=== PATIENT | male | born 1960 | race Caucasian/White ===

== ENCOUNTER → 2017-03-24 | Outpatient (CLI) | payer MEDICAID ==
--- NOTE | 2017-03-24 10:59 | RADIOLOGY REPORT (SQ) ---
EXAM DESCRIPTION: KUB COMPLETED DATE/TIME: 03/24/2017 10:43 am REASON FOR STUDY: CALCULUS OF KIDNEY N20.0 CALCULUS OF KIDNEY COMPARISON: CT dated 03/20/2016. NUMBER OF VIEWS: One view. TECHNIQUE: AP supine digital radiograph of the abdomen. LIMITATIONS: Bowel contents limit visualization of the kidneys. FINDINGS: CALCIFICATIONS: RIGHT KIDNEY: None. RIGHT URETER: No calcifications in the expected location of the ureter. LEFT KIDNEY: None. LEFT URETER: No calcifications in the expected location of the ureter. BLADDER: No suspicious calcifications in the pelvis. BOWEL GAS PATTERN AND SOFT TISSUES: Normal bowel gas pattern. No masses or organomegaly. BONES: No acute fracture. No worrisome bone lesions. OTHER: None. IMPRESSION: NO CALCIFICATIONS IDENTIFIED IN THE EXPECTED LOCATION OF THE URINARY SYSTEM. THERE IS L IMITED VISUALIZATION DUE TO OVERLYING BOWEL CONTENTS. TECHNICAL DOCUMENTATION: JOB ID: [id number] [employer]- All Rights Reserved
== END ==
LOC: OD 10:15
PROVIDERS: ATTEND Urology
DX: N20.0 Calculus of kidney (principal)
CPT/HCPCS: 74000

== ENCOUNTER 2017-07-09 10:57 | Emergency (ER) | payer MEDICAID ==
[2017-07-09 11:03] VITALS: BP 151/72
[2017-07-09] MEDS ORDERED: CLINDAMYCIN HCL 150 MG CAPSULE PO ONE (11:22)
[2017-07-09] MEDS ORDERED: OXYCODONE-ACETAMINOPHEN 5-325 MG TABLET PO ONE (11:23)
--- NOTE | 2017-07-09 11:23 | ER Document Report ---
ED Skin Rash/Insect Bite/Abscs - General Chief Complaint: Skin Problem Stated Complaint: SKIN IRRITATION Time Seen by Provider: 07/09/17 11:06 Notes: Patient is a 56-year-old male who presents emergency department complaining of a bug bite on his back that has been there for about 1 week. States it is painful and red and tender. States he is trying to drain it at home without any LOC. Denies any fevers or chills. Denies any previous history of MRSA or VRE TRAVEL OUTSIDE OF THE [place] IN LAST 30 DAYS: No - Related Data Allergies/Adverse Reactions: No Known Allergies Allergy (Verified 01/04/16 19:11) Past Medical History - Social History Smoking Status: Current Every Day Smoker Family History: DM - Past Medical History Cardiac Medical History: Denies: Hx Coronary Artery Disease, Hx Heart Attack, Hx Hypertension Pulmonary Medical History: Denies: Hx Asthma, Hx Bronchitis, Hx COPD, Hx Pneumonia Neurological Medical History: Denies: Hx Cerebrovascular Accident, Hx Seizures Musculoskeltal Medical History: Reports Hx Arthritis - Immunizations Hx Diphtheria, Pertussis, Tetanus Vaccination: No Review of Systems - Review of Systems Constitutional: No symptoms reported Cardiovascular: No symptoms reported Respiratory: No symptoms reported Skin: See HPI -: Yes All other systems reviewed and negative Physical Exam - Vital signs Vitals: Temp Pulse Resp BP Pulse Ox 98.1 F 85 16 151/72 H 96 07/09/17 10:59 07/09/17 10:59 07/09/17 10:59 07/09/17 10:59 07/09/17 10:59 - Notes Notes: PHYSICAL EXAM GENERAL: Alert, interacts well. LUNGS: Clear to auscultation bilaterally, no wheezes, rales, or rhonchi. No respiratory distress. HEART: Regular rate and rhythm. No murmurs, gallops, or rubs. ABDOMEN: Soft, nondistended, nontender. No guarding, rebound, or rigidity.. Bowel sounds present in all 4 quadrants. EXTREMITIES: Moves all 4 extremities spontaneously. No edema, radial and dorsalis pedis pulses 2/4 bilaterally. No cyanosis. NEUROLOGICAL: Alert and oriented x4. Normal speech. PSYCH: Normal affect, normal mood. SKIN: Warm, dry, normal turgor. 5 cm in diameter abscess on patient's back with central fluctuance and purulent material without active drainage and surrounding induration. Course - Re-evaluation Re-evalutation: 07/09/17 13:26 Patient is a 56-year-old male who is hemodynamically stable, no acute distress and afebrile. Presentation is consistent with abscess. I&D performed at the bedside for approximately 5 cc of present material packing placed in the wound. Patient to be discharged on clindamycin and to follow-up in the emergency department on Friday for wound check. Discussed strict return precautions otherwise patient is stable for discharge home. - Vital Signs Vital signs: Temp Pulse Resp BP Pulse Ox 98.1 F 85 16 151/72 H 96 07/09/17 10:59 07/09/17 10:59 07/09/17 10:59 07/09/17 10:59 07/09/17 10:59 Procedures - Incision and Drainage Mid- Back Type: Simple Anesthetic type: 1% Lidocaine mL's of anesthetic: 8 Blade size: 11 I&D procedure: Betadine prep applied Incision Method: Incision made by scalpel Amount/type of drainage: 5cc purulent material Discharge - Discharge Clinical Impression: Abscess Condition: Good Disposition: HOME, SELF-CARE Additional Instructions: Return for wound check in 3 days ABSCESS: You have an abscess (boil). This a pus-forming infection, usually due to staph. Some boils may be left to drain on their own, but most require lancing. From the time the tender lump first appears, it may be three or four days before the abscess is ready to erik. Local heat and rest help at this stage of treatment. An antibiotic may prevent spread of the infection. Once the abscess is opened, packing may be placed into it. This is done so pus is not sealed inside by premature closure of the cavity. The packing will be removed at your follow-up visit or you may be advised to remove it yourself at home. Sometimes this packing must be replaced a few times during healing. The wound will heal with surprisingly little scar. Depending on the size and location of an abscess, healing can take one to four weeks. You may shower and wash the area around the incision site two or three times a day. Antibiotics may be prescribed, but are usually not necessary after an abscess has been drained. If you develop fever, chills, worsening pain, or increasing swelling in the area, call the doctor or return immediately. POST INCISION AND DRAINAGE: You have had an incision made to allow drainage of an abscess. The incision must remain open so that pus and debris can drain from the wound. If the abscess cavity is large, packing is placed. This keeps the tissues from collapsing and trapping pus inside, while the body shrinks the cavity. The packing may need to be replaced every day or two. The physician will instruct you on the packing. Keep a bulky dressing over the area. Replace it if it becomes saturated with blood or pus. Do not disturb the packing (if present). You may shower and cleanse the area with gentle soap and warm water two or three times a day. Local warmth may be soothing, and may promote faster healing. Return if you develop high fever or chills, or if you note spreading redness, increasing swelling, or increasing tenderness. MRSA CELLULITIS: You have an infection of your skin and underlying soft tissues called cellulitis. This is due to bacteria, which can enter through any break in the skin, or even through an irritated hair follicle. Untreated, cellulitis will usually worsen and may form an abscess which requires draining. Although many bacterial organisms can cause cellulitis and abscess formations, the most likely bacteria is Methicillin-Resistant Staph Aureus, or MRSA for short. Antibiotics are required. Usually, warm packs or warm soaks, and elevation of the infected area are recommended. You should start getting better within 24 to 36 hours. Most infections respond quickly to the right medication. Follow-up care is important, however, to check for abscess (boil) formation, unsuspected foreign body, or resistant infection. If you develop fever, chills, or if the area of infection is becoming rapidly more swollen or painful, call the doctor at once. ORAL NARCOTIC MEDICATION: You have been given a prescription for pain control. This medication is a narcotic. It's best taken with food, as nausea can result if taken on an empty stomach. Don't operate machinery or drive within six hours of taking this medication. Do not combine this medicine with alcohol, or with any medication which can cause sedation (such as cold tablets or sleeping pills) unless you get permission from the physician. Narcotics tend to cause constipation. If possible, drink plenty of fluids and eat a diet high in fiber and fruits. FOLLOW-UP CARE: Most simple abscesses will not require a follow up visit. If you had packing placed in the abscess, remove it as instructed by the physician. If you have been referred to a physician for follow-up care, call the physicians office for an appointment as you were instructed or within the next two days. If you experience worsening or a significant change in your symptoms, return to the Emergency Department at any time for re-evaluation. Prescriptions: Clindamycin HCl 450 mg PO TID 7 Days capsule Oxycodone HCl/Acetaminophen [Percocet 5-325 mg Tablet] 1 tab PO ASDIR PRN #15 tab PRN Reason: Referrals: EREN BOWDEN MD [Primary Care Provider] - Follow up as needed
== END 2017-07-09 13:46 | disposition home or self-care (01) ==
LOC: ER 10:57
PROC: 0H96XZZ Drainage of Back Skin, External Approach (ICD-10-PCS; principal; 2017-07-09)
DX: L02.212 Cutaneous abscess of back [any part, except buttock and flank] (principal); S20.469A Insect bite (nonvenomous) of unspecified back wall of thorax, initial encounter; W57.XXXA Bitten or stung by nonvenomous insect and other nonvenomous arthropods, initial encounter
CPT/HCPCS: 99283; 87070; 87205; 87075; 87077; 87186; 10060; J3490

== ENCOUNTER 2017-07-12 10:19 | Emergency (ER) | payer MEDICAID ==
--- NOTE | 2017-07-12 11:27 | ER Document Report ---
HPI - HPI Patient complains to provider of: wound check, packing removal Onset: Other Quality of pain: Achy Severity: Mild Pain Level: 1 Context: Patient here for wound check and packing removal from back. Abscess drained on July 09. Associated Symptoms: None Exacerbated by: Denies Relieved by: Denies Similar symptoms previously: Yes Recently seen / treated by doctor: Yes - ROS ROS below otherwise negative: Yes Systems Reviewed and Negative: Yes All other systems reviewed and negative - CONSTITUTIONAL Constitutional: DENIES: Fever - EENT EENT: DENIES: Congestion - NEURO Neurology: DENIES: Headache - CARDIOVASCULAR Cardiovascular: DENIES: Chest pain - RESPIRATORY Respiratory: DENIES: Trouble Breathing - GASTROINTESTINAL Gastrointestinal: DENIES: Abdominal Pain - MUSCULOSKELETAL Musculoskeletal: REPORTS: Back Pain - Abscess site - DERM Skin Problems: Rash Past Medical History - General Information source: Patient - Social History Smoking Status: Current Some Day Smoker Cigarette use (# per day): Yes Frequency of alcohol use: None Drug Abuse: None Lives with: Family Family History: DM Musculoskeltal Medical History: Reports Hx Arthritis Past Surgical History: Reports: Hx Orthopedic Surgery - Immunizations Hx Diphtheria, Pertussis, Tetanus Vaccination: No Vertical Provider Document - CONSTITUTIONAL Agree With Documented VS: Yes Exam Limitations: No Limitations General Appearance: WD/WN, No Apparent Distress - INFECTION CONTROL TRAVEL OUTSIDE OF THE [place] IN LAST 30 DAYS: No - HEENT HEENT: Atraumatic, Normocephalic - RESPIRATORY Respiratory: Breath Sounds Normal, No Respiratory Distress O2 Sat by Pulse Oximetry: 97 - CARDIOVASCULAR Cardiovascular: Regular Rate, Regular Rhythm - GI/ABDOMEN Gastrointestinal: Abdomen Soft - MUSCULOSKELETAL/EXTREMETIES Musculoskeletal/Extremeties: MAEW - NEURO Level of Consciousness: Awake, Alert, Appropriate - DERM Integumentary: Abscess - Dressing and packing removed from mid back. Very small amount of purulent drainage expressed from wound. Course - Re-evaluation Re-evalutation: 07/12/17 11:39 Wound cleansed with normal saline and Shur-Clens. Sterile dressing reapplied. Patient tolerated procedure well. - Vital Signs Vital signs: Temp Pulse Resp BP Pulse Ox 98.4 F 78 16 134/78 H 97 07/12/17 10:29 07/12/17 10:29 07/12/17 10:29 07/12/17 10:29 07/12/17 10:29 Discharge - Discharge Clinical Impression: Back abscess, Wound check, abscess Condition: Good Disposition: HOME, SELF-CARE Additional Instructions: Continue antibiotics that you were previously prescribed Warm compresses to area Change dressing twice daily Ibuprofen for pain Follow-up with your doctor for recheck next week. Return as needed Prescriptions: Oxycodone HCl/Acetaminophen [Percocet 5-325 mg Tablet] 1 - 2 tab PO ASDIR PRN # 10 tablet PRN Reason: Referrals: EREN BOWDEN MD [Primary Care Provider] - Follow up as needed
[2017-07-12 12:02] VITALS: BP 132/72
== END 2017-07-12 12:00 | disposition home or self-care (01) ==
LOC: ER 10:19
DX: L02.212 Cutaneous abscess of back [any part, except buttock and flank] (principal); F17.210 Nicotine dependence, cigarettes, uncomplicated
CPT/HCPCS: 99282

== ENCOUNTER 2018-04-14 13:04 | Emergency (ER) | payer MEDICAID ==
--- NOTE | 2018-04-14 13:25 | ER Document Report ---
HPI - HPI Patient complains to provider of: Low back pain Onset: Other - Years because of rheumatoid arthritis and if he moves wrong Onset/Duration: Waxing and waning Pain Level: 3 Context: 57-year-old male smoker complaining of low back pain worse than usual the past several days. He has a history of rheumatoid arthritis. No radiculopathy, no saddle anesthesia, no fever or chills, no IV drug use. No history of cancer. No testicular pain. No dysuria. Associated Symptoms: None Exacerbated by: Movement Relieved by: Denies - ROS ROS below otherwise negative: Yes Systems Reviewed and Negative: Yes All other systems reviewed and negative Past Medical History - General Information source: Patient - Social History Smoking Status: Current Every Day Smoker Lives with: Family Family History: DM Musculoskeletal Medical History: Reports Hx Arthritis Past Surgical History: Reports: Hx Orthopedic Surgery - Immunizations Hx Diphtheria, Pertussis, Tetanus Vaccination: No Vertical Provider Document - CONSTITUTIONAL Agree With Documented VS: Yes Exam Limitations: No Limitations - INFECTION CONTROL TRAVEL OUTSIDE OF THE [place] IN LAST 30 DAYS: No - MUSCULOSKELETAL/EXTREMETIES Musculoskeletal/Extremeties: MAEW, FROM, Tender - Over bilateral sacrum. negative: Edema, Eccymosis - NEURO Level of Consciousness: Awake, Alert Deep Tendon Reflexes: 2+ - Bilateral ankle and patellar - DERM Integumentary: No Rash Course - Re-evaluation Re-evalutation: 04/14/18 15:03 X-rays negative per radiologist. Patient is on disability he does not work. Patient asking for a cortisone shot it helped a lot last time. 04/14/18 15:06 - Vital Signs Vital signs: Temp Pulse Resp BP Pulse Ox 97.7 F 75 16 122/68 97 04/14/18 13:15 04/14/18 13:15 04/14/18 13:15 04/14/18 13:15 04/14/18 13:15 Discharge - Discharge Clinical Impression: Exacerbation of chronic back pain Condition: Good Disposition: HOME, SELF-CARE Instructions: Acetaminophen, Ibuprofen (General) ([facility]), Low Back Pain ([facility]), Muscle Relaxers ([facility]), Warm Packs ([facility]) Additional Instructions: See Dr. Magallanes about her low back Copy of negative lumbar spine x-ray given to you Flexeril 10 mg up to 3 times a day as a muscle relaxer Motrin 800 mg up to 3 times a day for inflammation Tylenol up to 4000 mg per day for pain Return to the emergency room for any fever, chills, numbness, tingling, worsening of the pain, or any concerns Prescriptions: Ibuprofen [Motrin 800 mg Tablet] 800 mg PO Q8HP PRN #30 tablet PRN Reason: Cyclobenzaprine HCl [Flexeril 10 Mg Tablet] 10 mg PO TIDP PRN #20 tablet PRN Reason: Referrals: EREN BOWDEN MD [Primary Care Provider] - Follow up tomorrow
--- NOTE | 2018-04-14 14:47 | RADIOLOGY REPORT (SQ) ---
EXAM DESCRIPTION: L SPINE WHOLE COMPLETED DATE/TIME: 04/14/2018 2:33 pm REASON FOR STUDY: low back pain, hx rheumatoid arthritis COMPARISON: None. NUMBER OF VIEWS: Five views including obliques. TECHNIQUE: AP, lateral, oblique, and sacral radiographic images acquired of the lumbar spine. LIMITATIONS: None. FINDINGS: MINERALIZATION: Normal. SEGMENTATION: Normal. No transitional anatomy. ALIGNMENT: Normal. VERTEBRAE: Maintained height. No fracture or worrisome bone lesion. DISCS: Preserved height. No significant osteophytes or end plate irregularity. POSTERIOR ELEMENTS: Pedicles and facets are intact. No pars defect or posterior arch defects. HARDWARE: None in the spine. PARASPINAL SOFT TISSUES: Normal. PELVIS: Intact as visualized. No fractures or worrisome bone lesions. SI joints intact. OTHER: No other significant finding. IMPRESSION: NORMAL 5 VIEW LUMBAR SPINE. TECHNICAL DOCUMENTATION: JOB ID: [id number] All Rights Reserved Reading location - IP/workstation name: [email or web address]
[2018-04-14] MEDS ORDERED: DEXAMETHASONE SOD PHOS INJ 10 MG/1 ML VIAL IM ONE (15:06)
[2018-04-14 15:17] VITALS: BP 110/71
== END 2018-04-14 15:17 | disposition home or self-care (01) ==
LOC: ER 13:04
DX: M06.9 Rheumatoid arthritis, unspecified (principal); M54.5 Low back pain; G89.29 Other chronic pain; F17.200 Nicotine dependence, unspecified, uncomplicated
CPT/HCPCS: 99283; 96372; 72110; J1100